=== PATIENT | male | born 1980 | race Caucasian/White ===

== ENCOUNTER 2023-01-23 07:28 | Emergency (ER) | payer OTHER ==
[2023-01-23 08:30] LABS: BASO % 0.7 % (0-2.0); EOS % 0.8 % (0-4.5); HEMATOCRIT 45.8 % (35.4-49); HEMOGLOBIN 15.8 GM/dL (11.7-16.9); LYMPH % 24.5 % (8-40); MCH 29.2 pg (25.7-33.7); MCHC 34.5 g/dl (32.0-35.9); MEAN CELL VOLUME 84.7 fl (80-96); MEAN PLT VOLUME 8.9 fl (7.5-11.1); MONO % 11.8 % (3.8-10.2); NEUT % 62.2 % (42.8-82.8); PLATELET COUNT 192 10^3/uL (134-434); RBC 5.41 M/mm3 (4.00-5.60); RDW 13.6 % (11.9-15.9)
[2023-01-23 08:37] LABS: PROTHROMBIN TIME (PATIENT) 11.6 SEC (9.7-13.0)
[2023-01-23 08:39] VITALS: RESP 17; TEMP 97.8; BMI 27.2
[2023-01-23 08:39] LABS: ACTIVATED PTT 32.9 SECONDS (25.2-36.5)
[2023-01-23 08:45] VITALS: BP 126/91; PULSE 91
[2023-01-23 08:47] LABS: POTASSIUM 4.3 mmol/L (3.5-5.1)
[2023-01-23 08:49] LABS: CALCIUM 9.5 mg/dL (8.5-10.1)
[2023-01-23 08:50] LABS: BLOOD UREA NITROGEN 16.9 mg/dL (7-18); MAGNESIUM 2.2 mg/dL (1.8-2.4)
[2023-01-23 08:54] LABS: BILIRUBIN,TOTAL 0.5 mg/dL (0.2-1)
[2023-01-23 08:55] LABS: TOT PROT 7.4 g/dl (6.4-8.2)
== END 2023-01-23 09:57 | disposition home or self-care (01) ==
LOC: JER 07:28
DX: R20.2 Paresthesia of skin (principal)
CPT/HCPCS: 36415; 70450-TC; 71046-TC-FY; 80053; 83735; 84484; 85025; 85610; 85730; 93005; 93010; 99285-25